=== PATIENT | male | born 1960 | race Hispanic/Latino ===

== ENCOUNTER 2016-12-17 07:15 | Emergency (ER) | payer BC ==
[2016-12-17 07:23] VITALS: TEMP 98; O2SAT 98; BMI 25.9
[2016-12-17] MEDS ORDERED: Naproxen 500 MG TAB PO STA (08:07)
--- NOTE | 2016-12-17 08:09 | ED PDOC ---
Lower Extremity Pain/Injury Time Seen by Provider: 12/17/16 07:32 Chief Complaint (Nursing): Lower Extremity Problem/Injury Chief Complaint (Provider): Right Leg Pain History Per: Patient History/Exam Limitations: no limitations Onset/Duration Of Symptoms: Hrs Current Symptoms Are (Timing): Still Present Legs Front+Back: 1 - Pain Additional Complaint(s): Sacha Kingston is a 56 year old male who presents to the ED for evaluation of right anterior lower leg pain since waking up at 06:05 this morning. He denies trauma or over exertion yesterday. Pain is worse with ambulation. No swelling. He has never had similar pain in the past. Nothing taken for pain. The patient has a history of kidney stones and lithotripsy. He denies history of smoking. Past Medical History Reviewed: Historical Data, Nursing Documentation, Vital Signs Vital Signs: Last Vital Signs Temp 98 F 12/17/16 07:22 Pulse 77 12/17/16 07:22 Resp 16 12/17/16 07:22 BP 144/90 12/17/16 07:22 Pulse Ox 98 12/17/16 07:22 - Medical History PMH: Kidney Stones - Immunization History Hx Tetanus Toxoid Vaccination: No Hx Influenza Vaccination: No Hx Pneumococcal Vaccination: No - Home Medications Home Medications: Ambulatory Orders Medication Instructions Recorded Cyclobenzaprine [Cyclobenzaprine 10 mg PO TID PRN #15 tab 12/17/16 HCl] Ibuprofen [Motrin] 600 mg PO Q6H PRN #20 tab 12/17/16 - Allergies Allergies/Adverse Reactions: Allergies Allergy/AdvReac Type Severity Reaction Status Date / Time No Known Allergies Allergy Verified 12/17/16 07:42 Review of Systems Musculoskeletal: Positive for: Leg Pain Physical Exam - Physical Exam Appears: Negative for: No Acute Distress Extremity: Positive for: Other (Full range of motion of right ankle and right knee, tenderness over anterior lateral right leg , No calf tenderness, 2+ DP pulses, Sensation intact, No pitting edema) - ECG O2 Sat by Pulse Oximetry: 98 Medical Decision Making Medical Decision Making: Impression: Musculoskeletal pain vs. DVT Plan: US ----- Scribe Attestation: Documented by Sj Haynes, acting as a scribe for Anneliese Ortega MD. Provider Scribe Attestation: All medical record entries made by the Scribe were at my direction and personally dictated by me. I have reviewed the chart and agree that the record accurately reflects my personal performance of the history, physical exam, medical decision making, and the department course for this patient. I have also personally directed, reviewed, and agree with the discharge instructions and disposition. Disposition - Clinical Impression Clinical Impression: Lower leg pain - Disposition Condition: STABLE Additional Instructions: FOLLOW-UP WITH YOUR PMD FOR REEVALUATION. Prescriptions: Cyclobenzaprine [Cyclobenzaprine HCl] 10 mg PO TID PRN #15 tab PRN Reason: Pain Ibuprofen [Motrin] 600 mg PO Q6H PRN #20 tab PRN Reason: Pain, Moderate (4-7) Instructions: Leg Pain (ED) Forms: [employer] ([place])
[2016-12-17] MEDS ORDERED: Naproxen 500 MG TAB PO ONE (08:20)
--- NOTE | 2016-12-17 11:05 | US ---
PROCEDURE: Right lower extremity venous duplex Doppler. HISTORY: RLE pain COMPARISON: None available. TECHNIQUE: Common femoral, superficial femoral, popliteal and posterior tibial veins were evaluated. Flow was assessed with color Doppler, compressibility, assessment of phasic flow and augmentation response. FINDINGS: COMMON FEMORAL VEIN: Normal flow, compressibility and augmentation response. SUPERFICIAL FEMORAL VEIN: Normal flow, compressibility and augmentation response. POPLITEAL VEIN: Normal flow, compressibility and augmentation response. POSTERIOR TIBIAL VEIN: Normal flow, compressibility and augmentation response. OTHER FINDINGS: None. IMPRESSION: No evidence of deep venous thrombosis in the right lower extremity.
[2016-12-17 11:27] VITALS: BP 110/68; PULSE 88; RESP 18
== END 2016-12-17 11:27 | disposition home or self-care (01) ==
LOC: H.ER 07:15
DX: M79.604 Pain in right leg (principal)